=== PATIENT | female | born 1970 | race Caucasian/White ===

== ENCOUNTER 2016-12-14 16:13 | Emergency (ER) | payer OTHER ==
[~2016-12-14] VITALS: Ht 170.2 cm; Wt 79.4 kg
[2016-12-14] MEDS ORDERED: SUMATRIPTAN SUCCINATE 6 MG/0.5 ML VIAL SQ ONE ×2 (17:00→17:03)
[2016-12-14 17:59] VITALS: BP 128/85
== END 2016-12-14 18:00 | disposition home or self-care (01) ==
LOC: ER 16:17
DX: G43.909 Migraine, unspecified, not intractable, without status migrainosus (principal); Z98.890 Other specified postprocedural states
CPT/HCPCS: A4606; J3030; Z7610

== ENCOUNTER 2017-02-09 08:17 | Emergency (ER) | payer OTHER ==
[~2017-02-09] VITALS: Ht 170.2 cm; Wt 79.4 kg
--- NOTE | 2017-02-09 08:27 | NUR ---
PT BB : MIGRAINE SINCE YESTERDAY MORNING. RUN OUT OF IMITREX. PLACED ON MONITOR. VSS. AWAITING MD ORDER
[2017-02-09] MEDS ORDERED: METOCLOPRAMIDE HCL 10 MG/2 ML VIAL ONE (08:41)
[2017-02-09] MEDS ORDERED: DEXAMETHASONE SOD PHOSPHATE 10 MG/ML VIAL ONE (08:41)
[2017-02-09] MEDS ORDERED: diphenhydrAMINE HCL 50 MG/ML VIAL ONE (08:41)
[2017-02-09] MEDS ORDERED: IV NS 0.9% 1,000 ML ONE (08:42)
[2017-02-09] MEDS ORDERED: IV SET PRIMARY PUMP SET 1 EA INFUS.SET MC ONE (08:42)
[2017-02-09] MEDS ORDERED: KETOROLAC TROMETHAMINE INJ 30 MG/ML VIAL ONE (08:42)
--- NOTE | 2017-02-09 08:49 | NUR ---
PT STATES SHE IS NOT AND NO WAY SHE COULD GET , REFUSED URINE HCG. DR MARIA MADE AWARE.
[2017-02-09] MEDS ORDERED: KETOROLAC TROMETHAMINE INJ 30 MG/ML VIAL IV ONE (09:00)
[2017-02-09] MEDS ORDERED: IV NS 0.9% 1,000 ML BAG IV ONE (09:00)
[2017-02-09] MEDS ORDERED: DEXAMETHASONE SOD PHOSPHATE 10 MG/ML VIAL IV ONE (09:00)
[2017-02-09] MEDS ORDERED: METOCLOPRAMIDE HCL 10 MG/2 ML VIAL IV ONE (09:00)
[2017-02-09] MEDS ORDERED: diphenhydrAMINE HCL 50 MG/ML VIAL IV ONE (09:00)
[2017-02-09 09:31] VITALS: BP 120/80
--- NOTE | 2017-02-09 10:22 | NUR ---
IV removed. Catheter intact and site benign. Pressure and 4x4 applied to site. No bleeding noted. Patient discharged to home in stable condition. Written and verbal after care instructions given. Patient verbalizes understanding of instruction.
== END 2017-02-09 10:23 | disposition home or self-care (01) ==
LOC: EDUNIT# 08:17 → ER 08:18
DX: G43.909 Migraine, unspecified, not intractable, without status migrainosus (principal); Z41.1 Encounter for cosmetic surgery
CPT/HCPCS: A4606; J1100; J1200; J1885; J2765; J7030; Z7610

== ENCOUNTER 2017-06-27 10:58 | Emergency (ER) | payer OTHER ==
[~2017-06-27] VITALS: Ht 170.2 cm; Wt 72.6 kg
[2017-06-27] MEDS ORDERED: HYDROMORPHONE 1 MG/1 ML DISP.SYRIN IM ONE (11:30)
[2017-06-27] MEDS ORDERED: SUMATRIPTAN SUCCINATE 6 MG/0.5 ML VIAL SQ ONE ×2 (11:30→11:31)
[2017-06-27] MEDS ORDERED: ONDANSETRON 4 MG TAB.RAPDIS SL ONE (11:30)
[2017-06-27] MEDS ORDERED: ONDANSETRON 4 MG TAB.RAPDIS ONE (11:32)
[2017-06-27] MEDS ORDERED: HYDROMORPHONE INJ 2 MG/ML DISP.SYRIN ONE (11:34)
[2017-06-27 12:19] VITALS: BP 120/70
== END 2017-06-27 12:26 | disposition home or self-care (01) ==
LOC: ER 10:59
DX: G43.909 Migraine, unspecified, not intractable, without status migrainosus (principal); Z98.890 Other specified postprocedural states
CPT/HCPCS: A4606; J1170; J3030; Q0162; Z7610